=== PATIENT | male | born 1950 | race Two or more races ===

== ENCOUNTER 2024-08-24 13:34 | Emergency (ER) | payer OTHER, MEDICAID, SELFPAY ==
--- NOTE | 2024-08-24 13:48 | EDNOTE_ITS ---
Upper Respiratory Inf. RME/HPI General Chief Complaint: Flu Like Symptoms Stated Complaint: CONGESTION/ STOMACH HURTS X4 DAYS Time Seen by Provider: 08/24/24 13:43 Arrival date/time: 08/24/24 13:34 RME / HPI RME / HPI Narrative: This section includes all my notes and documentations, including HPI, PE, and ED course.? Juan F Wright MD HPI: 73 year old male with history of asthma and active tobacco smoker presents to the ED for evaluation of a cough producing green phlegm beginning 4 days ago. States he consulted with his PCP 2 days ago and was prescribed antibiotics. Reportedly has taken the antibiotics with little to no improvement. Patient additionally complains of feeling hot and a headache. Denies measuring temperature at home, chest pain. No other complaints. ROS: All negative except as documented in HPI. Physical Exam: General:? Alert and oriented. Hacking cough during exam. ?? Eyes:? Conjunctivae and lids clear.?? ENT:? No nasal congestion.?? Neck:? Supple.?? Lungs:? Moderately decreased air movement with diffuse rhonchi. Skin:? Warm and dry.?? Neuro:? Alert and oriented X 3.?? I reviewed all diagnostic test results. My interpretation of the chest x-ray is infiltrates. COVID/influenza/RSV/strep negative. At this point, diagnoses include?pneumonia. Treatment here included?prednisone 80 mg and DuoNeb X 2 and Rocephin 1 g IM and oral Zithromax 500 mg and two Tylenol #3. Significant improvement noted. Recommended a trial of outpatient treatment. Based on my best medical judgment, made decision no further evaluation or treatment indicated at this time.? Patient understands and agrees to the discharge instructions customized and printed, see below. Discharge instructions from Dr. Wright: --No physical exertion for 3 days to help rest the lungs. ?-No smoking or exposure to smoking or pets or dust or cold or humidity. --Zithromax and cefdinir to kill the germs causing the pneumonia. --Prednisone to help decrease the swelling in the airways. --Albuterol 2 puffs every 4-6 hours for 3 days to help keep the airways open. Then as needed for cough or shortness of breath. --See a private doctor next week for recheck if not completely better. --Seek immediate medical care with worsening or with any concerns. Juan F Wright MD Related Data Previous Rx's ?Medication ?Instructions ?Recorded acetaminophen 300 mg-codeine 30 mg 2 tab PO TID PRN pain #20 tabs 08/24/24 tablet albuterol sulfate 90 mcg/actuation 2 inh inhalation QID PRN shortness 08/24/24 aerosol inhaler of breath or wheezing #8.5 grams azithromycin 500 mg tablet 500 mg PO QDAY 3 days #3 tabs 08/24/24 (Zithromax TRI-DAVIAN) cefdinir 300 mg capsule 300 mg PO BID #14 caps 08/24/24 prednisone 20 mg tablet 40 mg PO BID 3 days #12 tabs 08/24/24 Allergies Allergy/AdvReac Type Severity Reaction Status Date / Time NKA* Allergy Uncoded 08/24/24 13:35 Review of Systems Review of Systems Systems Reviewed: All systems reviewed, normal except as documented Past Medical History Social History SMOKING STATUS: Current every day smoker ED Exam Narrative Physical exam: As noted in HPI Course Course Course Narrative: chest xray ordered to help determine etiology of cough. Quality Measures none Orders Category Date Time Status Bedside COVID-19 Antigen Test NOW Care 08/24/24 13:50 Active Bedside Influenza A&B Antigen Test NOW Care 08/24/24 13:50 Completed Miscellaneous Nursing Order NOW Care 08/24/24 14:36 Active XR chest 1V portable Stat Exams 08/24/24 13:50 Completed RSV [Respiratory Syncytial Virus Ag] Stat Lab 08/24/24 14:13 Completed Strep A Rapid Stat Lab 08/24/24 14:13 Completed ACETAMINOPHEN w/COD 300-30 [Tylenol w/Cod #3] Med 08/24/24 13:48 Discontinued 2 tab PO X1 ONE Albuterol/Ipratr Rt Babita [Duoneb Rt Babita] Med 08/24/24 13:48 Discontinued 6 ml INH X1 ONE Azithromycin Po [Zithromax PO] Med 08/24/24 14:27 Discontinued 500 mg PO X1 ONE cefTRIAXone [Rocephin] 1,000 mg Med 08/24/24 14:27 Discontinued Lidocaine 1% 20 ml [Xylocaine 1% 20 ML] 2.1 ml IM X1 predniSONE Med 08/24/24 13:48 Discontinued 80 mg PO X1 ONE Vital Signs Vital signs: Vital Signs Temperature 98.7 F 08/24/24 13:50 Pulse Rate 73 08/24/24 13:50 Respiratory Rate 20 08/24/24 13:50 Blood Pressure 131/86 H 08/24/24 13:50 Pulse Oximetry (%) 96 08/24/24 13:50 Oxygen Delivery Method Room Air 08/24/24 13:50 Upper Respiratory Infection MDM Narrative MDM Narrative:: Luann Nur am scribing for and in the presence of Dr. Wright. Patient data External records reviewed:: None (No previous records for review ) Clinical information provided by:: patient Social determinants that could affect healthcare access:: other (specify) (Active tobacco smoker ) Patient has the following chronic illnesses:: Asthma How is presenting disease/condition affected by chronic disease/condition?: exacerbated by Evaluation data The following diagnostics were reviewed and interpreted by me:: lab results and radiology exam(s) Lab and/or radiology exams considered but not ordered:: None Interpretation Summary: Pneumonia Medications / Prescriptions Medications or Prescriptions considered but not ordered:: None Medication administrations:: Medication Administration History Discontinued Medications Acetaminophen/Codeine Phosphate (Acetaminophen W/Cod 300-30 Tablet) 2 tab PO X1 ONE Stop: 08/24/24 13:49 Last Admin: 08/24/24 14:01 Dose: 2 tab Documented By: Albuterol/Ipratropium (Albuterol/Ipratropium (Duoneb) Rt Babita 3 Ml Nebu) 6 ml INH X1 ONE Stop: 08/24/24 13:49 Last Admin: 08/24/24 14:21 Dose: 6 ml Documented By: RAVINDRA Azithromycin (Azithromycin 250 Mg Tablet) 500 mg PO X1 ONE Stop: 08/24/24 14:28 Last Admin: 08/24/24 15:23 Dose: 500 mg Documented By: Ceftriaxone Sodium 1,000 mg/ (Lidocaine HCl 2.1 ml) 0 mg IM X1 ONE Stop: 08/24/24 14:28 Last Admin: 08/24/24 15:24 Dose: 1,000 mg Documented By: Prednisone (Prednisone 20 Mg Tablet) 80 mg PO X1 ONE Stop: 08/24/24 13:49 Last Admin: 08/24/24 14:01 Dose: 80 mg Documented By: See chart Consultations Consultation(s) initiated? (list below): No Diagnosis Upper Respiratory Differential Diagnosis: upper respiratory infection, otitis media, sinusitis, viral infection, bronchitis, influenza and other (Pneumonia ) Most likely diagnosis given after review of the tests above:: Pneumonia Admission Indicated Admission indicated?: not indicated Explain why admission is indicated or not indicated:: Significant improvement with treatment here Admission Request Was there a request for admission?: No Disposition Plan Disposition Plan: Discharge Discharge Attestation Discharge Attestation: The patient and all family members were given an opportunity to ask questions and understood the discharge instructions. Discharge instructions specifically effects, indications for sooner follow up or return to the emergency department, and the expected course of current diagnosis. Patient condition: Stable Discharge Plan Plan Patient Disposition: HOME (Self Care) Prescriptions/Referrals Prescriptions/Med Rec: New acetaminophen-codeine 300-30 mg tablet 2 tab PO TID MDD 6 PRN (Reason: pain) Qty: 20 0RF albuterol sulfate 90 mcg/actuation HFA aerosol inhaler 2 inh inhalation QID PRN (Reason: shortness of breath or wheezing) Qty: 8.5 0RF prednisone 20 mg tablet 40 mg PO BID 3 Days Qty: 12 0RF Taper: Prednisone Taper 20 mg DAILY for 2 Days and 0 Hour 10 mg DAILY for 2 Days and 0 Hour 5 mg DAILY for 7 Days and 0 Hour cefdinir 300 mg capsule 300 mg PO BID Qty: 14 0RF azithromycin [Zithromax TRI-DAVIAN] 500 mg tablet 500 mg PO QDAY 3 Days Qty: 3 0RF Problem List Clinical Impression: Pneumonia Patient/Caregiver Discharge Instructions Discharge Activity: activity as tolerated Education Materials: ED Pneumonia (Adult) Additional Instructions: Discharge instructions from Dr. Wright: --No physical exertion for 3 days to help rest the lungs. ?-No smoking or exposure to smoking or pets or dust or cold or humidity. --Zithromax and cefdinir to kill the germs causing the pneumonia. --Prednisone to help decrease the swelling in the airways. --Albuterol 2 puffs every 4-6 hours for 3 days to help keep the airways open. Then as needed for cough or shortness of breath. --See a private doctor next week for recheck if not completely better. --Seek immediate medical care with worsening or with any concerns. Print Language: Wolof Stand Alone Forms: [employer] Patient Portal Info Letter
[2024-08-24 13:50] VITALS: BP 131/86; PULSE 73; RESP 20; TEMP 37.1; O2SAT 96; BMI 28.4
--- NOTE | 2024-08-24 13:50 | XR_ITS ---
Examination: AP chest single view TECHNIQUE: AP portable upright chest single view Exam date and time: August 24, 2024 1407 hours Comparison July 06, 2023 INDICATIONS: Onset SOB today. FINDINGS: Suspicious for early left base pneumonia Normal heart size Prominent osteopenia Mild bronchitis pattern Old left-sided rib fractures IMPRESSION: Suspicious for early left base pneumonia
[2024-08-24] MEDS: predniSONE 20 MG TABLET 80 MG PO (14:01)
[2024-08-24] MEDS: ACETAMINOPHEN w/COD 300-30 TABLET 2 TAB PO (14:01)
[2024-08-24] MEDS: ALBUTEROL/IPRATROPIUM (Duoneb) RT SOL 3 ML NEBU 6 ML INH (14:21)
[2024-08-24 14:22] VITALS: PULSE 63; RESP 18; O2SAT 99
[2024-08-24 14:53] LABS: Respiratory Syncytial Virus Ag Negative (Negative)
[2024-08-24 14:55] LABS: Strep A Rapid Negative (Negative)
[2024-08-24] MEDS: AZITHROMYCIN 250 MG TABLET 500 MG PO (15:23)
[2024-08-24] MEDS: cefTRIAXone 1,000 MG, LIDOCAINE 1% 20 ML 2.1 ML IM (15:24)
== END 2024-08-24 15:48 | disposition home or self-care (01) ==
PROVIDERS: Emergency Provider Emergency Medicine; PCP Internal Medicine
DX: J18.9 Pneumonia, unspecified organism (principal); F17.210 Nicotine dependence, cigarettes, uncomplicated
CPT/HCPCS: 71045; 87400; 87634; 87651; 87811; 94640; 96372; 99283; A9270; J0696; J3490; J7512

== ENCOUNTER 2024-08-31 09:35 | Emergency (ER) | payer OTHER, MEDICAID, SELFPAY ==
--- NOTE | 2024-08-31 10:31 | XR_ITS ---
Examination: PA lateral chest 2 views TECHNIQUE: Upright PA lateral chest 2 views Exam date and time: August 31, 2024 1047 hours Comparison 03/24/2024 INDICATIONS: History pneumonia. FINDINGS: Scarring versus pneumonia in the lingular segment Moderate hyperexpansion Normal heart size IMPRESSION: Scarring versus pneumonia on the lateral view in the lingular segment, clinical correlation advised
--- NOTE | 2024-08-31 10:31 | EKG_ITS ---
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
--- NOTE | 2024-08-31 10:32 | PD.EDRME ---
Rapid Medical Screening Exam RME Arrival date/time: 08/31/24 09:35 This a 73-year-old male here with complaints of cough and chest pain recently discharged due to pneumonia presents here requesting recheck if clearing of pneumonia. I have greeted and performed a focused initial assessment of this patient. Initial appropriate labs ordered at this time. A comprehensive ED assessment and evaluation of the patient and analysis of all test and completion of medical decision making process will be conducted by additional ED provider. Chief Complaint: Chest Pain Time Seen by Provider: 08/31/24 10:17
[2024-08-31 10:34] VITALS: BP 144/84; PULSE 69; RESP 20; TEMP 36.8; O2SAT 99; BMI 29.3
[2024-08-31 10:55] LABS: Basophils % (Auto) 0 % (0-2.5); Eosinophils # (Auto) 0.3 Thou/mm3 (0.0-0.5); Eosinophils % (Auto) 2 % (0-10); Hematocrit 44.9 % (41.0-53.0); Hemoglobin 15.1 g/dL (13.5-16.0); Immature Granulocytes % (Auto) 1 % (0-0); Immature Granulocytes Auto 0.14 Thou/mm3 (0.00-0.00); Lymphocytes % (Auto) 25 % (10-50); Mean Corpuscular HGB Conc 33.6 g/dl (31.0-37.0); Mean Corpuscular Volume 80 fL (80-100); Monocytes # (Auto) 1.4 Thou/mm3 (0.0-0.8); Monocytes % (Auto) 12 % (0-12); Neutrophils # (Auto) 7.2 Thou/mm3 (1.8-7.7); Neutrophils % (Auto) 60 % (37-80); Nucleated Red Blood Cell % 0 /100 WBC (0); Platelet Count 221 Thou/mm3 (140-440); RDW Standard Deviation 44.6 fL (35.1-43.9); Red Blood Count 5.59 Miln/mm3 (4.50-5.90)
[2024-08-31 11:03] LABS: Prothrombin Time 10.9 Seconds (9.0-12.2)
[2024-08-31 11:05] LABS: B-Type Natriuretic Peptide 50 pg/mL (0-100)
[2024-08-31 11:07] LABS: Alanine Aminotransferase 30 U/L (10-49); Albumin/Globulin Ratio 1.8 (1.2-2.2); Alkaline Phosphatase 80 U/L (46-116); Anion Gap 3 (7-16); Aspartate Amino Transferase 12 U/L (0-34); BUN/Creatinine Ratio 24 Ratio (12-20); Bilirubin,Total 0.5 mg/dL (0.3-1.2); Blood Urea Nitrogen 19 mg/dL (9-23); Calcium 9.2 mg/dL (8.3-10.6); Calcium (Corrected) 9.2 mg/dL (8.5-10.1); Carbon Dioxide 31.7 mMol/L (20.0-31.0); Chloride 104 mMol/L (98-107); Creatinine (Component) 0.8 mg/dL (0.6-1.3); Estimated Creatinine Clearance 84.2 mL/min (>60); Globulin 2.2 gm/dL (2.3-3.5); Glucose 89 mg/dL (74-106); Lipase 44 U/L (12-53); Osmolality,Calculated 278 (275-295); Potassium 4.4 mMol/L (3.4-5.1); Sodium 139 mMol/L (136-145); Total Protein 6.2 gm/dL (5.7-8.2); Troponin I < 0.020 ng/mL (0.0-0.045); eGFR > 60 See Note
[2024-08-31 11:34] VITALS: PULSE 112; RESP 20; O2SAT 100
[2024-08-31] MEDS: ALBUTEROL/IPRATROPIUM (Duoneb) RT SOL 3 ML NEBU INH (11:35)
--- NOTE | 2024-08-31 12:37 | PD.EDCHEST ---
ED Chest Pain RME/HPI General Chief Complaint: Chest Pain Stated Complaint: CHEST PAIN, RECENT DX PNA Time Seen by Provider: 08/31/24 10:17 Source: patient Arrival date/time: 08/31/24 09:35 this is a 73-year-old male who presents to the emergency department with complaints of a cough with chest pain. He reports that approximately 10 days ago he was diagnosed with pneumonia. patient requesting a recheck because unable to follow-up with his doctor until 1 more week. Reports he completed his antibiotic course and other medication. RME / HPI RME / HPI narrative: 08/31/24 09:35 This a 73-year-old male here with complaints of cough and chest pain recently discharged due to pneumonia presents here requesting recheck if clearing of pneumonia. I have greeted and performed a focused initial assessment of this patient. Initial appropriate labs ordered at this time. A comprehensive ED assessment and evaluation of the patient and analysis of all test and completion of medical decision making process will be conducted by additional ED provider. Related Data Previous Rx's ?Medication ?Instructions ?Recorded acetaminophen 300 mg-codeine 30 mg 2 tab PO TID PRN pain #20 tabs 08/24/24 tablet albuterol sulfate 90 mcg/actuation 2 inh inhalation QID PRN shortness 08/24/24 aerosol inhaler of breath or wheezing #8.5 grams cefdinir 300 mg capsule 300 mg PO BID #14 caps 08/24/24 fluticasone 250 mcg-salmeterol 50 1 inh inhalation BID #60 ea 08/31/24 mcg/dose blistr powdr for inhalation ipratropium bromide 17 2 puff inhalation Q8H #12.9 grams 08/31/24 mcg/actuation HFA aerosol inhaler Allergies Allergy/AdvReac Type Severity Reaction Status Date / Time NKA* Allergy Uncoded 08/24/24 13:35 Review of Systems Review of Systems Systems Reviewed: All systems reviewed, normal except as documented Narrative Review of Systems: Gen: No fever, no chills, no weight loss EYES: No discharge, no visual changes, no pain HEENT: No ear pain, nasak congestion, no sore throat PULM: No shortness of breath, + cough, no congestion CV: No chest pain, no dyspnea on exertion, no palpitations GI: No nausea, no vomiting, no diarrhea, no pain, no constipation : No frequency, no urgency,? no dysuria Musc/skel: No joint pain, no back pain Skin: No rash? Neuro: No weakness, no headache ED Exam Narrative Physical exam: General: Sittiing in Exam table in no acute distress, answering questions appropriately HENT: normocephalic, atraumatic, EOMI, PERRLA, moist mucous membranes Chest: chest wall is nontender Cardiac: regular rate and rhythm, normal S1 and S2, no murmurs, rubs, or gallops, capillary refill ?2 seconds Pulmonary: clear to auscultation bilaterally, no wheezing, crackles, or rhonchi Abdominal: active bowel sounds, soft, nontender, nondistended Neuro: A&OX3, CN II-XII intact, sensation grossly intact bilaterally in UE and LE. Skin: no rashes, no ecchymosis Ext: no lower extremity edema Course Quality Measures none Orders Category Date Time Status EKG (ED ONLY) *Do not use* NOW Care 08/31/24 10:31 Completed Insert IV STAT Care 08/31/24 10:31 Completed EKG (ED Only) Stat Exams 08/31/24 10:31 Draft XR chest 2V Stat Exams 08/31/24 10:31 Completed B-Type Natriuretic Peptide Stat Lab 08/31/24 10:39 Completed CBC Stat Lab 08/31/24 10:39 Completed Comprehensive Metabolic Panel Stat Lab 08/31/24 10:39 Completed Lipase Stat Lab 08/31/24 10:39 Completed Prothrombin Time with INR Stat Lab 08/31/24 10:39 Completed Troponin I Stat Lab 08/31/24 10:39 Completed Albuterol/Ipratr Rt Babita [Duoneb Rt Babita] Med 08/31/24 10:31 Discontinued 3 ml INH X1 ONE Vital Signs Vital signs: Vital Signs Temperature 98.2 F 08/31/24 10:34 Pulse Rate 69 08/31/24 10:34 Respiratory Rate 20 08/31/24 10:34 Blood Pressure 144/84 H 08/31/24 10:34 Pulse Oximetry (%) 99 08/31/24 10:34 Oxygen Delivery Method Room Air 08/31/24 10:34 Chest Pain MDM Narrative MDM Narrative:: 73-year-old male evaluated in the emergency department for recheck on pneumonia. Patient reports he is doing much improved since his last visit he has completed his antibiotic course however wanted a repeat x-ray to evaluate the course of pneumonia. I did advise patient pneumonia is clear on x-ray. Patient is still having some mild coughing and congestion I will start him on inhalers and he advised him to keep his appointment with his doctor on 1227. Strict ER precautions given to return if there is any worsening symptoms change in condition. Patient data External records reviewed:: [facility] previous records Clinical information provided by:: patient Social determinants that could affect healthcare access:: none Patient has the following chronic illnesses:: yes, COPD, How is presenting disease/condition affected by chronic disease/condition?: exacerbated by Evaluation data The following diagnostics were reviewed and interpreted by me:: lab results, radiology exam(s) and EKG tracing(s) Lab and/or radiology exams considered but not ordered:: no Interpretation Summary: see above Medications / Prescriptions Medications or Prescriptions considered but not ordered:: no Medication administrations:: Medication Administration History Discontinued Medications Albuterol/Ipratropium (Albuterol/Ipratropium (Duoneb) Rt Babita 3 Ml Nebu) 3 ml INH X1 ONE Stop: 08/31/24 10:32 Last Admin: 08/31/24 11:35 Dose: 3 ml Documented By: EV all medications administered and effective Consultations Consultation(s) initiated? (list below): No Diagnosis Chest Pain Differential Diagnosis: fracture of rib, pneumothorax, atypical chest pain, costochondritis, chest pain and biliary colic Most likely diagnosis given after review of the tests above:: CoPD Admission Indicated Admission indicated?: not indicated Admission Request Was there a request for admission?: No Disposition Plan Disposition Plan: Discharge Discharge Attestation Discharge Attestation: The patient and all family members were given an opportunity to ask questions and understood the discharge instructions. Discharge instructions specifically effects, indications for sooner follow up or return to the emergency department, and the expected course of current diagnosis. Patient condition: Stable Discharge Plan Plan Patient Disposition: HOME (Self Care) Patient condition on transfer: Stable Prescriptions/Referrals Prescriptions/Med Rec: New ipratropium bromide 17 mcg/actuation HFA aerosol inhaler 2 puff inhalation Q8H Qty: 12.9 0RF fluticasone propion-salmeterol 250-50 mcg/dose blister with device 1 inh inhalation BID Qty: 60 0RF No Action acetaminophen-codeine 300-30 mg tablet 2 tab PO TID MDD 6 PRN (Reason: pain) Qty: 20 0RF albuterol sulfate 90 mcg/actuation HFA aerosol inhaler 2 inh inhalation QID PRN (Reason: shortness of breath or wheezing) Qty: 8.5 0RF cefdinir 300 mg capsule 300 mg PO BID Qty: 14 0RF Referrals: Rupesh Ballard MD [Primary Care Provider] - In 1 week Problem List Clinical Impression: Atypical chest pain, COPD (chronic obstructive pulmonary disease) Patient/Caregiver Discharge Instructions Discharge Activity: activity as tolerated Education Materials: Asthma and COPD Additional Instructions: Please make sure you keep your appointment with your primary doctor. I did send a couple of inhalers that will help with your cough and shortness of breath. Your x-ray does not demonstrate any lingering pneumonia. Return to the emergency department this any worsening symptoms change in condition. Print Language: Latvian Stand Alone Forms: [employer] Patient Portal Info Letter PA/ELIZABETH Supervising Physician DYLAN/ELIZABETH Supervising Physician: Dr Strong
== END 2024-08-31 13:21 | disposition home or self-care (01) ==
PROVIDERS: Nurse Practitioner Primary Care; Emergency Provider Emergency Medicine; PCP Internal Medicine
DX: J44.9 Chronic obstructive pulmonary disease, unspecified (principal); R07.89 Other chest pain
CPT/HCPCS: 36415; 71046; 80053; 83690; 83880; 84484; 85025; 85610; 93005; 94640; 99283; A9270

== ENCOUNTER 2024-10-25 08:21 | Emergency (ER) | payer OTHER, MEDICAID, SELFPAY ==
[2024-10-25 08:22] VITALS: BMI 30.7
[2024-10-25 08:34] VITALS: BP 128/81; PULSE 90; RESP 19; TEMP 36.8; O2SAT 99
--- NOTE | 2024-10-25 08:36 | XR_ITS ---
Examination: PA lateral chest 2 views TECHNIQUE: Upright PA lateral chest 2 views INDICATIONS: Coughing fever 4 days. FINDINGS: Early pneumonia both bases and lingular segment left upper lobe Normal heart size Old left-sided rib fractures IMPRESSION: Early bibasilar and lingular segment left upper lobe pneumonia
--- NOTE | 2024-10-25 08:36 | EDNOTE_ITS ---
<Statement entered by Alayna Sommers MD - 10/25/24 13:23> As co-signing physician, I was present and available for consult prn. I concur with the plan and care as documented by the midlevel provider. Upper Respiratory Inf. RME/HPI General Chief Complaint: Flu Like Symptoms Stated Complaint: COUGH, FEVER, CHEST AND BACK PAIN Time Seen by Provider: 10/25/24 08:26 Source: patient Arrival date/time: 10/25/24 08:21 73-year-old male with a history of asthma presents to the emergency room with a chief complaint of cough, fever, pain in his chest when he coughs x 4 days Mode of arrival: ambulatory Limitations: no limitations Related Data Previous Rx's ?Medication ?Instructions ?Recorded acetaminophen 300 mg-codeine 30 mg 2 tab PO TID PRN pa in #20 tabs 08/24/24 tablet albuterol sulfate 90 mcg/actuation 2 inh inhalation QI D PRN shortness 08/24/24 aerosol inhaler of breath or wheezing #8.5 g giovanna cefdinir 300 mg capsule 300 mg PO BID #14 caps 08/24 fluticasone 250 mcg-salmeterol 50 1 inh inhalation BID #60 ea 08/31/24 mcg/dose blistr powdr for inhalation ipratropium bromide 17 2 puff inhalation Q8H #12.9 grams 08/31/24 mcg/actuation HFA aerosol inhaler amoxicillin 875 mg-potassium 1 tab PO BID 7 days #14 t abs 10/25/24 clavulanate 125 mg tablet Allergies Allergy/AdvReac Type Severity Reaction Status Date / Time NKA* Allergy Uncoded 10/25/24 08:23 Review of Systems Review of Systems Systems Reviewed: All systems reviewed, normal except as documented Constitutional Constitutional: Reports system reviewed and no additional complaints, except as documented, Denies fatigue, Denies fever(s), Denies headache(s) and Denies weakness Eyes Eyes: Reports system reviewed and no additional complaints, except as documented, Denies blurry vision and Denies change in vision ENT Ears, Nose, Mouth, and Throat: Reports system reviewed and no additional complaints, except as documented, Denies otalgia, Denies headache(s), Denies nasal congestion, Denies throat swelling and Denies vertigo Cardiovascular Cardiovascular: Reports system reviewed and no additional complaints, except as documented, Denies chest pain, Reports dyspnea and Denies dyspnea on exertion Respiratory Respiratory: Reports system reviewed and no additional complaints, except as documented, Reports change in phlegm color, Reports chest congestion, Reports cough, Reports dyspnea, Denies dyspnea on exertion, Reports pain on inspiration, Reports pain with cough and Denies wheezing Gastrointestinal Gastrointestinal: Reports system reviewed and no additional complaints, except as documented, Denies abdominal pain, Denies cramping, Denies nausea and Denies vomiting Genitourinary Genitourinary: Reports system reviewed and no additional complaints, except as documented, Denies dysuria and Denies hematuria Musculoskeletal Musculoskeletal: Reports system reviewed and no additional complaints, except as documented and Denies back pain Integumentary/Breasts Skin/Breast: Reports system reviewed and no additional complaints, except as documented and Denies wounds Neurologic Neurologic: Reports system reviewed and no additional complaints, except as documented, Denies confusion, Denies headache(s), Denies lack of coordination, Denies vertigo and Denies weakness Psychiatric Psychiatric: Reports system reviewed and no additional complaints, except as documented, Denies anxiety, Denies confusion, Denies depression, Denies paranoia, Denies suicidal ideation and Denies tactile hallucinations Endocrine Endocrine: Reports system reviewed and no additional complaints, except as documented and Denies fatigue Hematologic/Lymphatic Hematologic/Lymphatic: Reports system reviewed and no additional complaints, except as documented and Denies lymphadenopathy Allergic/Immunologic Allergic/Immunologic: Reports system reviewed and no additional complaints, except as documented, Denies throat swelling, Denies urticaria and Denies wheezing ED Exam General Limitations: Present no limitations General appearance: Present alert and in no apparent distress Head Head exam: Present atraumatic Eye Eye exam: Present normal appearance, PERRL and EOMI ENT ENT exam: Present normal exam, normal oropharynx and mucous membranes moist Neck Neck exam: Present normal inspection, full ROM and trachea midline Chest Chest inspection: Present normal inspection and symmetric chest wall rise Respiratory Respiratory exam: Present normal lung sounds bilaterally; Absent respiratory distress, wheezes, stridor, accessory muscle use or prolonged expiratory phase Cardiovascular Cardiovascular exam: Present regular rate, normal rhythm and normal heart sounds Abdominal Exam Abdominal exam: Present soft and normal bowel sounds Extremities Exam Extremities exam: Present normal inspection and full ROM Back Exam Back exam: Present normal inspection and full ROM Neurological Exam Neurological exam: Present alert, oriented X3 and CN II-XII intact Psychiatric Psychiatric exam: Present normal affect and normal mood Skin Skin exam: Present warm, dry, intact and normal color Course Quality Measures none Orders Category Date Time Status Bedside COVID-19 Antigen Test NOW Care 10/25/24 08:36 Active Bedside Influenza A&B Antigen Test NOW Care 10/25/24 08:36 Completed XR chest 2V Stat Exams 10/25/24 08:36 Completed Vital Signs Vital signs: Vital Signs Temperature 98.3 F 10/25/24 08:34 Pulse Rate 90 10/25/24 08:34 Respiratory Rate 19 10/25/24 08:34 Blood Pressure 128/81 10/25/24 08:34 Pulse Oximetry (%) 99 10/25/24 08:34 Oxygen Delivery Method Room Air 10/25/24 08:34 O2 saturation 99% within normal limits Upper Respiratory Infection MDM Narrative MDM Narrative:: 73-year-old male with a history of asthma presents to the emergency room with a chief complaint of cough, fever, pain in his chest when he coughs x 4 days Patient is hemodynamically stable and afebrile Physical examination shows clear bilateral lung sounds with no wheezing or any abnormal breath sounds. X-ray was completed and shows left-sided upper pneumonia. COVID-19 and influe nza were both negative. Antibiotics are sent to the patient's pharmacy patient was discharged and educated to follow-up with primary care provider and return to the emergency room for any evidence of worsening signs or symptoms For any evidence of worsening signs or symptoms Patient data External records reviewed:: [facility] previous records Clinical information provided by:: patient Social determinants that could affect healthcare access:: none Patient has the following chronic illnesses:: No chronic illness How is presenting disease/condition affected by chronic disease/condition?: no chronic disease Evaluation data The following diagnostics were reviewed and interpreted by me:: lab results and radiology exam(s) Lab and/or radiology exams considered but not ordered:: Labs and radiology exams considered and ordered Interpretation Summary: Chest [id number]: Early pneumonia both bases and lingular segment left upper lobe Normal heart size Old left-sided rib fractures IMPRESSION: Early bibasilar and lingular segment left upper lobe pneumonia Medications / Prescriptions Medications or Prescriptions considered but not ordered:: No medication given Medication administrations:: No medication given Consultations Consultation(s) initiated? (list below): No Diagnosis Upper Respiratory Differential Diagnosis: upper respiratory infection, viral infection, bronchitis, influenza, pharyngitis and other (Community-acquired pn eumonia/COVID-19) Most likely diagnosis given after review of the tests above:: Community-acquired pneumonia Admission Indicated Admission indicated?: not indicated Admission Request Was there a request for admission?: No Disposition Plan Disposition Plan: Discharge Discharge Attestation Discharge Attestation: The patient and all family members were given an opportunity to ask questions and understood the discharge instructions. Discharge instructions specifically effects, indications for sooner follow up or return to the emergency department, and the expected course of current diagnosis. Patient condition: Stable Discharge Plan Plan Patient Disposition: HOME (Self Care) Disposition Comment: Stable Prescriptions/Referrals Prescriptions/Med Rec: New amoxicillin-pot clavulanate 875-125 mg tablet 1 tab PO BID 7 Days Qty: 14 0RF No Action ipratropium bromide 17 mcg/actuation HFA aerosol inhaler 2 puff inhalation Q8H Qty: 12.9 0RF fluticasone propion-salmeterol 250-50 mcg/dose blister with device 1 inh inhalation BID Qty: 60 0RF acetaminophen-codeine 300-30 mg tablet 2 tab PO TID MDD 6 PRN (Reason: pain) Qty: 20 0RF albuterol sulfate 90 mcg/actuation HFA aerosol inhaler 2 inh inhalation QID PRN (Reason: shortness of breath or wheezing) Qty: 8.5 0RF cefdinir 300 mg capsule 300 mg PO BID Qty: 14 0RF Referrals: No Primary/Family,Physician [Primary Care Provider] - In 1 week Problem List Clinical Impression: Community acquired pneumonia Patient/Caregiver Discharge Instructions Education Materials: ED Pneumonia (Adult) Additional Instructions: Please follow-up with your primary care provider in the next 24 to 48 hours. Your chest x-ray showed community-acquired pneumonia. Antibiotics are sent to your pharmacy please pick them up and take them as indicated. For any evidence of worsening signs or symptoms return to the emergency room immediately Print Language: Italian Stand Alone Forms: [facility] Award Info., Patient Portal Info Letter PA/ELIZABETH Supervising Physician PA/STAPLE [employer]TER Supervising Physician: Dr. SOMMERS
== END 2024-10-25 12:20 | disposition home or self-care (01) ==
PROVIDERS: Emergency Provider Emergency Medicine
DX: J18.9 Pneumonia, unspecified organism (principal); J45.909 Unspecified asthma, uncomplicated
CPT/HCPCS: 71046; 87400; 87811; 99283

== ENCOUNTER → 2024-12-27 | Outpatient (CLI) | payer MEDICARE, MEDICAID, SELFPAY ==
--- NOTE | 2024-12-27 10:24 | XR_ITS ---
Examination: PA lateral chest 2 views TECHNIQUE: Upright PA lateral chest 2 views Exam date and time: December 1052 hours INDICATIONS: Shortness of breath 2 weeks. FINDINGS: Moderate hyperexpansion. Normal heart size Pneumonia and/or atelectasis in the lingular segment Moderate thoracic spondylosis IMPRESSION: Pneumonia and/or atelectasis in the lingular segment left upper lobe, clinical correlation advised
[2024-12-27 11:27] LABS: Basophils # (Auto) 0.1 Thou/mm3 (0.0-0.2); Basophils % (Auto) 1 % (0-2.5); Eosinophils # (Auto) 0.3 Thou/mm3 (0.0-0.5); Eosinophils % (Auto) 3 % (0-10); Hematocrit 46.1 % (41.0-53.0); Hemoglobin 15.2 g/dL (13.5-16.0); Immature Granulocytes % (Auto) 0 % (0-0); Immature Granulocytes Auto 0.02 Thou/mm3 (0.00-0.00); Lymphocytes # (Auto) 2.4 Thou/mm3 (1.0-4.8); Lymphocytes % (Auto) 32 % (10-50); Mean Corpuscular Hemoglobin 26.9 pg (25.0-35.0); Mean Corpuscular Volume 82 fL (80-100); Monocytes # (Auto) 0.9 Thou/mm3 (0.0-0.8); Monocytes % (Auto) 11 % (0-12); Neutrophils # (Auto) 3.9 Thou/mm3 (1.8-7.7); Neutrophils % (Auto) 52 % (37-80); Nucleated Red Blood Cell % 0 /100 WBC (0); Platelet Count 208 Thou/mm3 (140-440); RDW Standard Deviation 48.4 fL (35.1-43.9); Red Blood Count 5.65 Miln/mm3 (4.50-5.90); White Blood Count 7.5 Thou/mm3 (3.8-10.6)
[2024-12-27 11:49] LABS: B-Type Natriuretic Peptide 22 pg/mL (0-100)
[2024-12-27 11:50] LABS: Glucose Estimated Average 114 mg/dL (80-131); Hemoglobin A1C 5.6 % Hgb (4.8-6.0)
[2024-12-27 11:51] LABS: Prostate Specific Antigen 2.92 ng/mL (0-4.00)
[2024-12-27 11:55] LABS: Vitamin D 25 Hydroxy Total 21.3 ng/mL (7.3-40.2)
[2024-12-27 11:57] LABS: Alanine Aminotransferase 12 U/L (10-49); Albumin, Serum 4.6 gm/dL (3.4-4.8); Alkaline Phosphatase 88 U/L (46-116); Anion Gap 8 (7-16); Aspartate Amino Transferase 26 U/L (0-34); BUN/Creatinine Ratio 18 Ratio (12-20); Bilirubin,Total 0.8 mg/dL (0.3-1.2); Blood Urea Nitrogen 18 mg/dL (9-23); Calcium 9.8 mg/dL (8.3-10.6); Calcium (Corrected) 9.8 mg/dL (8.5-10.1); Carbon Dioxide 27.9 mMol/L (20.0-31.0); Cardiac Risk Estimate 3.7 RATIO (4.0-6.7); Chloride 107 mMol/L (98-107); Cholesterol 206 mg/dL (132-200); Free T4 (Free Thyroxine) 1.17 ng/dL (0.89-1.76); Globulin 2.3 gm/dL (2.3-3.5); Glucose 95 mg/dL (74-106); HDL Cholesterol 55 mg/dL (40-60); LDL Cholesterol,Calculated 126 mg/dL (0-130); Osmolality,Calculated 286 (275-295); Sodium 143 mMol/L (136-145); Thyroid Stimulating Hormone 1.73 uIU/mL (0.55-4.78); Total Protein 6.9 gm/dL (5.7-8.2); Triglycerides 124 mg/dL (30-150); eGFR > 60 See Note
== END | disposition home or self-care (01) ==
LOC: COPL 10:13
PROVIDERS: PCP Internal Medicine; Referring Provider Internal Medicine; Visit Provider Internal Medicine
DX: R06.00 Dyspnea, unspecified (principal); M19.90 Unspecified osteoarthritis, unspecified site; I50.42 Chronic combined systolic (congestive) and diastolic (congestive) heart failure; N40.1 Benign prostatic hyperplasia with lower urinary tract symptoms; E55.9 Vitamin D deficiency, unspecified; E78.2 Mixed hyperlipidemia; E03.9 Hypothyroidism, unspecified
CPT/HCPCS: 36415; 71046; 80053; 80061; 82306; 83036; 83880; 84153; 84439; 84443; 85025